=== PATIENT | female | born 1935 | race Hispanic/Latino ===

== ENCOUNTER 2018-12-22 14:00 | Inpatient (IN) | payer MEDICARE ==
[~2018-12-22] VITALS: Ht 152.4 cm; Wt 72.6 kg
[2018-12-22 14:38] LABS: BASOPHILS % (AUTO) 1.4 % (0.0-5.0); EOSINOPHILS % (AUTO) 1.1 % (0.0-8.0); HEMATOCRIT 43.6 % (36-48); LYMPHOCYTES % (AUTO) 15.6 % (21.0-51.0); MEAN CORPUSCULAR HEMOGLOBIN 29.3 pg (27.0-33.0); MEAN CORPUSCULAR HGB CONC 33.2 g/dL (32.0-36.0); MEAN CORPUSCULAR VOLUME 88.4 fL (79-99); MONOCYTES % (AUTO) 7.8 % (3.0-13.0); NEUTROPHILS % (AUTO) 74.1 % (40.0-77.0); PLATELET COUNT (AUTO) 216 K/uL (130-400); RED BLOOD CELL COUNT(AUTO) 4.93 MIL/uL (4.00-5.50); RED CELL DISTRIBUTION WIDTH 14.6 % (11.0-15.5); WHITE BLOOD COUNT (AUTO) 9.9 K/uL (4.8-10.8)
[2018-12-22 14:39] LABS: POTASSIUM 3.9 mmol/L (3.5-5.1)
[2018-12-22] MEDS ORDERED: ONDANSETRON HCL 4 MG/2 ML VIAL ONE (14:49)
[2018-12-22] MEDS ORDERED: SODIUM CHLORIDE 0.9% 1000ML 1,000 ML IV ONE (14:49)
[2018-12-22 15:01] LABS: APPEARANCE,URINE Clear (CLEAR); BILIRUBIN,URINE Negative (NEGATIVE); COLOR,URINE Dark Yellow (YELLOW); GLUCOSE, URINE (UA) Negative (NEGATIVE); KETONES,URINE 40 mg/dL (NEGATIVE); LEUKOCYTE ESTERASE ,URINE Trace (NEGATIVE); NITRATE,URINE Negative (NEGATIVE); OCCULT BLOOD,URINE Negative (NEGATIVE); PH,URINE 5.5 (5.0-8.0); PROTEIN,URINE Negative (NEGATIVE)
[2018-12-22 15:08] LABS: PARTIAL THROMBOPLASTIN TIME 27.1 SEC (26.3-35.5); PROTHROMBIN TIME 10.5 SEC (9.6-11.6)
[2018-12-22 15:23] LABS: BACTERIA,URINE Few /HPF (None Seen); RBC,URINE 0-1 /HPF (0-1); SQUAMOUS EPITHELIAL CELL,UR Rare /HPF (0-2)
[2018-12-22 15:39] LABS: ALBUMIN 3.5 g/dL (3.5-5.0); BILIRUBIN,DIRECT 0.2 mg/dL (0.0-0.3); BILIRUBIN,TOTAL 0.9 mg/dL (0.2-1.0); TOTAL PROTEIN, SERUM 7.1 g/dL (6.0-8.3)
[2018-12-22] MEDS ORDERED: MORPHINE SULFATE 2 MG/ML 1ML SYG ONE (15:54)
[2018-12-22] MEDS ORDERED: ACETAMINOPHEN ELIXIR 325 MG/10.15ML UDCUP PO PRN (16:45)
[2018-12-22] MEDS ORDERED: MORPHINE SULFATE 2 MG/ML 1ML SYG IVP PRN (16:45)
[2018-12-22] MEDS ORDERED: ENOXAPARIN SODIUM 40 MG/0.4 ML SYRINGE SQ ONE (16:59)
[2018-12-22 18:00] VITALS: BP 150/74
[2018-12-22] MEDS: DEXTROSE 5 %-0.45 % NACL 1,000 ML IV SCH (18:00)
[2018-12-22 19:05] VITALS: BP 166/76
[2018-12-22] MEDS ORDERED: METOPROLOL TARTRATE 1 MG/ML 5ML VIAL IV PRN (20:00)
[2018-12-22] MEDS ORDERED: LINA72CA PO (23:06)
[2018-12-22] MEDS ORDERED: PROP40TA7 PO (23:06)
[2018-12-22] MEDS ORDERED: OMEP40CA13 PO (23:06)
[2018-12-22] MEDS ORDERED: CALC0.253 PO (23:06)
[2018-12-22] MEDS ORDERED: CHOL500051 PO (23:06)
[2018-12-22] MEDS ORDERED: LEVO100T12 PO (23:06)
[2018-12-22 23:20] VITALS: BP 142/64
[2018-12-23 03:20] VITALS: BP_SYST 118; BP_SYST 157; BP_DIAS 66
[2018-12-23 05:22] LABS: HEMATOCRIT 33.5 % (36-48); MEAN CORPUSCULAR HGB CONC 34.1 g/dL (32.0-36.0); MEAN CORPUSCULAR VOLUME 87.9 fL (79-99); NUCLEATED RED BLOOD CELLS 0.1 % (0.0-0.19); PLATELET COUNT (AUTO) 175 K/uL (130-400); RED BLOOD CELL COUNT(AUTO) 3.81 MIL/uL (4.00-5.50); RED CELL DISTRIBUTION WIDTH 14.4 % (11.0-15.5); WHITE BLOOD COUNT (AUTO) 5.8 K/uL (4.8-10.8)
[2018-12-23] MEDS: DEXTROSE 5 %-0.45 % NACL 1,000 ML IV SCH ×2 (05:27→17:45)
[2018-12-23 05:48] LABS: CREATININE 0.9 mg/dL (0.5-1.5); POTASSIUM 3.7 mmol/L (3.5-5.1)
[2018-12-23 06:08] LABS: BAND NEUTROPHILS % (MANUAL) 6 % (0-2); EOSINOPHILS % (MANUAL) 1 % (1-6); LYMPHOCYTES % (MANUAL) 29 % (22-44); MAN.DIFF COMMENT-IMPRESSION MANUAL DIFFERENTIAL; MONOCYTES % (MANUAL) 9 % (2-9); PLATELET MORPHOLOGY COMMENT ADEQUATE; SEGMENTED NEUTROPHILS % 55 % (40-70)
[2018-12-23 07:59] VITALS: BP 151/64
--- NOTE | 2018-12-23 08:00 | NUR ---
NOTE AAOX3. NPO NGT LIWS. NO N/V. VERY SMALL AMOUNT OUTPUT NOTED. NO DISTRESS OR SOB. BBS CLEAR. NO PAIN ABDOMEN SOFT NONDISTENDED. HAS BEEN HAVING BOWEL MOVEMENTS LAST NIGHT SINCE SHE CAME INTO [facility] ADJUSTED NGT PER RECOMMENDATIONS FROM RADIOLOGY. NO OTHER PROBLEMS VOICED. PENDING SURGERY CONSULT.
[2018-12-23] MEDS: FAMOTIDINE/PF 20 MG/2 ML VIAL IV SCH (09:52)
[2018-12-23] MEDS: ENOXAPARIN SODIUM 40 MG/0.4 ML SYRINGE SQ SCH (09:52)
[2018-12-23 11:11] VITALS: BP 154/72
--- NOTE | 2018-12-23 12:00 | NUR ---
INIITAL MET W PT AND DAUGHTER JACQUIE RIDDLE PT VISITIING FROM [facility], LIVE W DAUGHTER THERE, NORMALLY NO DME, INDP OF ADLS, HOME SAFE AND ACCESSIBLE, HH RN 1 X WK, DAUGHTER UNSURE WHO SENT HH RN. DCP HOME WITH DAUGHTER TO RETURN TO [facility]. CM WILL FOLLOW ., CURRENTLY WITH NGT TUBE CLAMPED, NPO. UPDATED FACE SHEET. PT STATES SHE IS ONLY 'AURY SQUIRES, NOT AURY HOWARD' FACE SHEET SENT TO REGISTRATION FOR EDIT Addendum: 12/23/18 at 1747 by ZE LYLE RN CM Amended: Links added.
[2018-12-23] MEDS ORDERED: LACTULOSE 20 GM/30 ML UDCUP PO ONE (14:50)
[2018-12-23] MEDS ORDERED: MAGNESIUM CITRATE 296 ML SOLUTION PO ONE (14:50)
[2018-12-23 16:10] VITALS: BP 144/63
[2018-12-23] MEDS ORDERED: MAGNESIUM CITRATE 296 ML SOLUTION ONE (16:28)
[2018-12-23] MEDS ORDERED: LACTULOSE 20 GM/30 ML UDCUP ONE (16:28)
[2018-12-23] MEDS: MAGNESIUM HYDROXIDE 30 ML/UDCUP PO SCH (16:30)
--- NOTE | 2018-12-23 18:00 | NUR ---
NOTE SURGERY CAME TO SEE PATIENT AND HE GAVE ORDERS. HAVE CLAMPED TUBE SINCE HE ROUNDED ABOUT 1330 AND HAVE CHECKED FOR RESIDUALS 3 HOURS AFTER AND WILL CHECK AT 6 HRS AFTER AND SEE IF THERE IS RESIDUALS BUT THERE IS NOTHING. WAS GIVEN BOWEL REGIMEN AND NO RESULTS YET. NO N/V JUST HAS NOT BEEN ABLE TO HAVE BM.
[2018-12-23 19:25] VITALS: BP 150/64
[2018-12-23] MEDS ORDERED: BISACODYL 10 MG SUPP.RECT RC ONE ×2 (20:11→21:15)
[2018-12-23] MEDS: ONDANSETRON HCL 4 MG/2 ML VIAL IVP PRN (21:10)
[2018-12-23 23:40] VITALS: BP 153/68
[2018-12-24] VITALS (7 sets, daily range): BP systolic 137–177; BP diastolic 58–84
[2018-12-24] MEDS: DEXTROSE 5 %-0.45 % NACL 1,000 ML IV SCH ×2 (05:45→09:42)
[2018-12-24] MEDS: MAGNESIUM HYDROXIDE 30 ML/UDCUP PO SCH (08:29)
[2018-12-24] MEDS: FAMOTIDINE/PF 20 MG/2 ML VIAL IV SCH (09:42)
[2018-12-24] MEDS: ENOXAPARIN SODIUM 40 MG/0.4 ML SYRINGE SQ SCH (09:43)
[2018-12-24] MEDS ORDERED: SIMETHICONE 80 MG TAB.CHEW ONE (20:35)
[2018-12-24] MEDS ORDERED: SIMETHICONE 40 MG/0.6 ML ML PO PRN (20:45)
[2018-12-24] MEDS: ONDANSETRON HCL 4 MG/2 ML VIAL IVP PRN (22:51)
[2018-12-25 03:43] VITALS: BP 111/55
[2018-12-25 05:29] LABS: BASOPHILS % (AUTO) 0.2 % (0.0-5.0); EOSINOPHILS % (AUTO) 0.5 % (0.0-8.0); HEMATOCRIT 39.8 % (36-48); LYMPHOCYTES % (AUTO) 13.5 % (21.0-51.0); MEAN CORPUSCULAR HEMOGLOBIN 29.4 pg (27.0-33.0); MEAN CORPUSCULAR HGB CONC 33.7 g/dL (32.0-36.0); MEAN CORPUSCULAR VOLUME 87.4 fL (79-99); MONOCYTES % (AUTO) 6.8 % (3.0-13.0); PLATELET COUNT (AUTO) 200 K/uL (130-400); RED BLOOD CELL COUNT(AUTO) 4.55 MIL/uL (4.00-5.50); RED CELL DISTRIBUTION WIDTH 14.7 % (11.0-15.5); WHITE BLOOD COUNT (AUTO) 11.2 K/uL (4.8-10.8)
[2018-12-25 05:34] LABS: CREATININE 0.8 mg/dL (0.5-1.5); POTASSIUM 3.3 mmol/L (3.5-5.1)
[2018-12-25] MEDS: DEXTROSE 5 %-0.45 % NACL 1,000 ML IV SCH (06:39)
[2018-12-25] MEDS: MAGNESIUM HYDROXIDE 30 ML/UDCUP PO SCH (07:31)
[2018-12-25 07:50] VITALS: BP 130/60
[2018-12-25] MEDS: FAMOTIDINE/PF 20 MG/2 ML VIAL IV SCH (09:10)
[2018-12-25] MEDS: ENOXAPARIN SODIUM 40 MG/0.4 ML SYRINGE SQ SCH (09:10)
[2018-12-25] MEDS ORDERED: LIDOCAINE HCL-MPF 1% 2ML VIAL IV PRN ×2 (09:45)
[2018-12-25] MEDS ORDERED: POTASSIUM CHLORIDE 10% ELIXIR 20 MEQ/15 ML UDCUP PO PRN (09:45)
[2018-12-25] MEDS ORDERED: POTASSIUM CHLORIDE 20MEQ/100ML 100 ML IV PRN ×2 (09:45)
[2018-12-25] MEDS: POTASSIUM CHLORIDE 20 MEQ ERTAB PO PRN ×3 (10:39→15:08)
--- NOTE | 2018-12-25 10:39 | NUR ---
LATE DISCHARGE LATE DISCHARGE DUE TO PENDING POTASSIUM PROTOCOL ADMINISTRATION FOR POTASSIUM OF 3.3. WILL GIVE POTASSIUM DIRECTED THEN PROCEED WITH DISCHARGE PLANNED.
[2018-12-25] MEDS ORDERED: LORA-705 PO (10:42)
[2018-12-25] MEDS ORDERED: POLY17PO4 PO (10:42)
[2018-12-25 11:05] VITALS: BP 159/70
[2018-12-25] MEDS: ONDANSETRON HCL 4 MG/2 ML VIAL IVP PRN (11:44)
[2018-12-25] MEDS ORDERED: METOCLOPRAMIDE 10 MG/2 ML VIAL ONE (14:19)
[2018-12-25] MEDS ORDERED: METOCLOPRAMIDE 10 MG/2 ML VIAL IVP SCH (14:30)
--- NOTE | 2018-12-25 15:25 | NUR ---
DISCHARGE DISCHARGE TEACHING DONE WITH PATIENT AND FAMILY USING TEACHBACK METHOD, VERBALIZED UNDERSTANDING. NO NOTED SOB OR DISTRESS. COMPLETED POTASSIUM PROTOCOL. OK TO DISCHARGE ON FULL LIQUID DIET, PATIENT TOLERATING DIET. NO EMESIS NOTED. NEW MEDICATION ADMINISTRATION TEACHING DONE WITH PATIENT AND FAMILY, VERBALIZED UNDERSTANDING. PT AWARE OF APPOINTMENT WITH GI. IV REMOVED, CATH TIP INTACT. PENDING TO BE TRANSFERRED OUT VIA PRIVATE VEHICLE.
== END 2018-12-25 16:44 | disposition home or self-care (01) | DRG 389 ==
LOC: EDH 14:00 → EDHIP 16:00 → 4BH 18:00
PROVIDERS: ADMIT Family Medicine; ATTEND Family Medicine
DX: K56.600 Partial intestinal obstruction, unspecified as to cause (principal); J98.11 Atelectasis; E87.1 Hypo-osmolality and hyponatremia; E03.9 Hypothyroidism, unspecified; I48.91 Unspecified atrial fibrillation; K21.9 Gastro-esophageal reflux disease without esophagitis; Z79.899 Other long term (current) drug therapy; Z87.891 Personal history of nicotine dependence; Z90.711 Acquired absence of uterus with remaining cervical stump; Z90.49 Acquired absence of other specified parts of digestive tract; Z80.9 Family history of malignant neoplasm, unspecified
CPT/HCPCS: 36415; 74018; 74176; 80048; 80076; 81001; 82550; 82948; 83690; 84484; 85025; 85610; 85730; 93005; G0378; J1650; J2405; J2765; J3490; J7030; J7042